=== PATIENT | female | born 1965 | race African-American/Black ===

== ENCOUNTER 2019-04-04 08:57 | Inpatient (IN) | payer MEDICAID, MEDICARE ==
[~2019-04-04] VITALS: Ht 170.2 cm; Wt 60.3 kg
[2019-04-04 14:28] LABS: MEAN CORPUSCULAR HEMOGLOBIN 19.1 pg (28.0-32.0); MEAN PLATELET VOLUME 8.2 fl (7.4-10.4); PLATELET 240 x1000/uL (130-400); RED BLOOD CELL COUNT 2.59 mill/uL (4.2-5.4); RED CELL DISTRIBUTION WIDTH 23.1 % (11.6-14.6)
[2019-04-04 14:34] LABS: HEMATOCRIT. 17.4 % (36.0-48.0)
[2019-04-04 14:35] LABS: CHLORIDE 106 mEq/L (98-107); CLARITY URINE CLEAR (CLEAR); COLOR URINE YELLOW (YELLOW); KETONES URINE TRACE (NEGATIVE); LEUKOCYTE ESTERASE URINE NEGATIVE (NEGATIVE); NITRITE URINE NEGATIVE (NEGATIVE); OCCULT BLOOD URINE 3+ (NEGATIVE); PROTEIN URINE TRACE (NEGATIVE); SPECIFIC GRAVITY URINE 1.018 (1.005-1.030)
[2019-04-04 14:39] LABS: HCG SCREEN NEGATIVE
[2019-04-04 14:47] LABS: B-HCG QUANTITATIVE < 1 mIU/mL (<3)
[2019-04-04 15:18] LABS: PLATELET ESTIMATE NORMAL
[2019-04-04 16:12] LABS: PROTHROMBIN TIME 10.4 sec (9.6-11.0)
[2019-04-04] MEDS ORDERED: IPRATROPIUM/ALBUTEROL 0.5-3(2.5)MG/3ML NEB HHN PRN (16:45)
[2019-04-04 18:15] VITALS: BP 113/63
[2019-04-04] MEDS: NICOTINE 21MG PATCH TD SCH (18:57)
[2019-04-04] MEDS: FERROUS SULFATE 325MG TABLET PO SCH (18:57)
[2019-04-04] MEDS: ACETAMINOPHEN 325MG TABLET PO PRN (19:45)
[2019-04-04 19:54] VITALS: BP 110/67
[2019-04-04 20:00] VITALS: BP 110/67
[2019-04-04] MEDS: FAMOTIDINE 20MG TABLET PO SCH (20:36)
[2019-04-04 23:34] LABS: MEAN CORPUSCULAR HEMOGLOBIN 22.5 pg (28.0-32.0); MEAN CORPUSCULAR VOLUME 71.8 fL (81.0-99.0); MEAN PLATELET VOLUME 8.1 fl (7.4-10.4); PLATELET 197 x1000/uL (130-400); RED BLOOD CELL COUNT 2.38 mill/uL (4.2-5.4); RED CELL DISTRIBUTION WIDTH 26.1 % (11.6-14.6)
[2019-04-04 23:40] LABS: HEMATOCRIT. 17.1 % (36.0-48.0); HEMOGLOBIN. 5.3 g/dL (12.0-16.0)
[2019-04-05] VITALS (19 sets, daily range): BP systolic 97–123; BP diastolic 62–81
[2019-04-05] MEDS: BUDESONIDE 0.5MG/2ML NEB HHN SCH ×3 (00:47→20:04)
[2019-04-05] MEDS: IPRATROPIUM/ALBUTEROL 0.5-3(2.5)MG/3ML NEB HHN SCH ×4 (00:47→20:04)
[2019-04-05 02:36] LABS: PLATELET ESTIMATE NORMAL
[2019-04-05 02:41] LABS: *AMPHETAMINES SCREEN URINE NEGATIVE (NEGATIVE); *BARBITURATES SCREEN URINE NEGATIVE (NEGATIVE); *BENZODIAZEPINES SCREEN URINE NEGATIVE (NEGATIVE); *COCAINE SCREEN URINE PRESUMTIVE POSITIVE (NEGATIVE); CANNABINOID URINE SCREEN NEGATIVE (NEGATIVE); METHADONE URINE SCREEN NEGATIVE (NEGATIVE); OPIATES URINE SCREEN NEGATIVE (NEGATIVE); PHENCYCLIDINE URINE SCREEN NEGATIVE (NEGATIVE)
[2019-04-05] MEDS: ACETAMINOPHEN 325MG TABLET PO PRN (04:07)
[2019-04-05 07:01] LABS: MEAN CORPUSCULAR HEMOGLOBIN 24.6 pg (28.0-32.0); MEAN PLATELET VOLUME 8.7 fl (7.4-10.4); PLATELET 179 x1000/uL (130-400); RED BLOOD CELL COUNT 2.66 mill/uL (4.2-5.4); RED CELL DISTRIBUTION WIDTH 27.1 % (11.6-14.6)
[2019-04-05 07:51] LABS: CHLORIDE 112 mEq/L (98-107)
[2019-04-05] MEDS: FERROUS SULFATE 325MG TABLET PO SCH ×3 (08:20→18:17)
[2019-04-05] MEDS: FAMOTIDINE 20MG TABLET PO SCH ×2 (08:20→21:47)
[2019-04-05] MEDS: NICOTINE 21MG PATCH TD SCH (08:20)
[2019-04-05 08:48] LABS: HEMATOCRIT. 20.2 % (36.0-48.0); HEMOGLOBIN. 6.6 g/dL (12.0-16.0)
[2019-04-05 09:03] LABS: PLATELET ESTIMATE NORMAL
[2019-04-05 09:11] LABS: MEAN CORPUSCULAR HEMOGLOBIN 24.6 pg (28.0-32.0); MEAN CORPUSCULAR VOLUME 76.4 fL (81.0-99.0); MEAN PLATELET VOLUME 8.5 fl (7.4-10.4); PLATELET 184 x1000/uL (130-400); RED BLOOD CELL COUNT 2.76 mill/uL (4.2-5.4); RED CELL DISTRIBUTION WIDTH 26.9 % (11.6-14.6)
[2019-04-05 09:18] LABS: HEMATOCRIT. 21.1 % (36.0-48.0); HEMOGLOBIN. 6.8 g/dL (12.0-16.0)
[2019-04-05] MEDS: HYDROCODONE/ACETAMINOPHEN 10/325MG TABLET PO PRN ×2 (09:53→19:06)
[2019-04-05 10:17] LABS: PLATELET ESTIMATE NORMAL
[2019-04-05] MEDS ORDERED: FERR325T6 MT (11:32)
[2019-04-05] MEDS ORDERED: DOCU-138 MT (11:32)
[2019-04-05] MEDS ORDERED: FLUT1DIS3 INH (11:32)
[2019-04-05] MEDS ORDERED: NICO-645 TP (11:32)
[2019-04-05] MEDS ORDERED: ALBU18HF2 IH (11:32)
[2019-04-05] MEDS ORDERED: MORPHINE SULFATE 2 MG/ML CPJ (NOT FOR IM USE) IV SCH (12:00)
[2019-04-05] MEDS: CHLORDIAZEPOXIDE 25MG CAPSULE PO SCH ×2 (14:09→21:47)
[2019-04-06] VITALS: BP 128/58
[2019-04-06 00:53] LABS: HEMATOCRIT 24.1 % (36.0-48.0); HEMOGLOBIN 7.9 g/dL (12.0-16.0)
[2019-04-06 04:00] VITALS: BP 122/82
[2019-04-06] MEDS: CHLORDIAZEPOXIDE 25MG CAPSULE PO SCH ×3 (06:23→21:18)
[2019-04-06] MEDS: FERROUS SULFATE 325MG TABLET PO SCH ×3 (06:23→18:03)
[2019-04-06 08:00] VITALS: BP 119/85
[2019-04-06] MEDS: FAMOTIDINE 20MG TABLET PO SCH ×2 (09:05→21:17)
[2019-04-06] MEDS: NICOTINE 21MG PATCH TD SCH (09:05)
[2019-04-06] MEDS: IPRATROPIUM/ALBUTEROL 0.5-3(2.5)MG/3ML NEB HHN SCH ×3 (09:09→21:37)
[2019-04-06] MEDS: BUDESONIDE 0.5MG/2ML NEB HHN SCH ×2 (09:09→21:37)
[2019-04-06] MEDS: ACETAMINOPHEN 325MG TABLET PO PRN (09:12)
[2019-04-06] MEDS: ONDANSETRON HCL 4MG/2ML INJ IV PRN (09:12)
[2019-04-06 12:15] VITALS: BP 109/76
[2019-04-06 16:00] VITALS: BP 119/81
[2019-04-06 20:00] VITALS: BP 100/64
[2019-04-06] MEDS: HYDROCODONE/ACETAMINOPHEN 10/325MG TABLET PO PRN (21:18)
[2019-04-07] VITALS (8 sets, daily range): BP systolic 85–110; BP diastolic 48–75
[2019-04-07] MEDS: IPRATROPIUM/ALBUTEROL 0.5-3(2.5)MG/3ML NEB HHN SCH ×5 (02:36→21:31)
[2019-04-07] MEDS: FERROUS SULFATE 325MG TABLET PO SCH ×3 (06:27→17:20)
[2019-04-07] MEDS: CHLORDIAZEPOXIDE 25MG CAPSULE PO SCH ×3 (06:27→21:04)
[2019-04-07] MEDS: ACETAMINOPHEN 325MG TABLET PO PRN ×2 (06:28→21:04)
[2019-04-07] MEDS: BUDESONIDE 0.5MG/2ML NEB HHN SCH ×2 (07:47→21:31)
[2019-04-07] MEDS: NICOTINE 21MG PATCH TD SCH (08:34)
[2019-04-07] MEDS: FAMOTIDINE 20MG TABLET PO SCH ×2 (08:34→21:04)
[2019-04-07] MEDS: HYDROCODONE/ACETAMINOPHEN 10/325MG TABLET PO PRN ×2 (10:19→23:22)
[2019-04-07 16:34] LABS: HEMOGLOBIN 6.1 g/dL (12.0-16.0)
[2019-04-07] MEDS: ONDANSETRON HCL 4MG/2ML INJ IV PRN (17:20)
[2019-04-07] MEDS ORDERED: CEFTRIAXONE 1 G PREMIX 50 ML IV SCH (20:30)
[2019-04-07] MEDS: CEFTRIAXONE 1,000 MG in DEXTROSE 5% WATER 50 ML IV SCH (22:12)
[2019-04-08] VITALS (8 sets, daily range): BP systolic 97–108; BP diastolic 58–75
[2019-04-08] MEDS: IPRATROPIUM/ALBUTEROL 0.5-3(2.5)MG/3ML NEB HHN SCH ×4 (02:39→22:09)
[2019-04-08] MEDS: CHLORDIAZEPOXIDE 25MG CAPSULE PO SCH ×3 (07:28→22:56)
[2019-04-08 08:19] LABS: BASOPHILS % 0.7 % (0.0-2.0); EOSINOPHILS % 2.9 % (0.0-5.0); LYMPHOCYTES % 37.1 % (20.0-50.0); MEAN CORPUSCULAR HEMOGLOBIN 27.4 pg (28.0-32.0); MEAN CORPUSCULAR VOLUME 84.6 fL (81.0-99.0); MONOCYTES % 13.4 % (2.0-8.0); NEUTROPHILS % 45.9 % (40.0-76.0); PLATELET 161 x1000/uL (130-400); RED BLOOD CELL COUNT 2.74 mill/uL (4.2-5.4); RED CELL DISTRIBUTION WIDTH 26.2 % (11.6-14.6)
[2019-04-08 08:25] LABS: HEMOGLOBIN. 7.6 g/dL (12.0-16.0)
[2019-04-08 08:26] LABS: HEMATOCRIT. 22.9 % (36.0-48.0)
[2019-04-08] MEDS: FAMOTIDINE 20MG TABLET PO SCH ×2 (08:55→21:16)
[2019-04-08] MEDS: FERROUS SULFATE 325MG TABLET PO SCH ×3 (08:55→21:16)
[2019-04-08] MEDS: NICOTINE 21MG PATCH TD SCH (08:56)
[2019-04-08] MEDS: BUDESONIDE 0.5MG/2ML NEB HHN SCH ×2 (08:57→22:09)
[2019-04-08] MEDS: HYDROCODONE/ACETAMINOPHEN 10/325MG TABLET PO PRN ×2 (10:57→21:21)
[2019-04-08] MEDS ORDERED: CEFAZOLIN 2,000 MG in DEXT 5% WATER 100 ML IV SCH (13:15)
[2019-04-08] MEDS ORDERED: BUPIVACAINE HCL/EPINEPHRINE 0.5%/0.0005 30ML ONE (15:24)
[2019-04-08] MEDS ORDERED: PROPOFOL 200MG/20ML VIAL IV ONE (16:36)
[2019-04-08] MEDS ORDERED: MIDAZOLAM HCL 2 MG/2 ML VIAL ONE (16:37)
[2019-04-08] MEDS ORDERED: LIDOCAINE HCL/PF 1% 10 MG/ML 5ML VIAL ONE (16:37)
[2019-04-08] MEDS ORDERED: FENTANYL CITRATE/PF 50MCG/ML 2ML VIAL ONE (16:37)
[2019-04-08] MEDS ORDERED: PHENYLEPHRINE HCL 10 MG/ML 1ML (IV VIAL) IV ONE (17:13)
[2019-04-08] MEDS ORDERED: KETAMINE HCL 50 MG/ML 10ML ONE (17:24)
[2019-04-08] MEDS ORDERED: ONDANSETRON HCL 4MG/2ML INJ IV PRN (17:30)
[2019-04-08] MEDS ORDERED: FENTANYL CITRATE/PF 50MCG/ML 2ML VIAL IV PRN (17:30)
[2019-04-08] MEDS ORDERED: HYDROMORPHONE HCL/PF 2MG/ML CPJ IV PRN (17:30)
[2019-04-08] MEDS ORDERED: SODIUM CHLORIDE 0.9% 10ML VIAL ONE (17:38)
[2019-04-08] MEDS ORDERED: ONDANSETRON HCL 4MG/2ML INJ ONE (17:58)
[2019-04-08] MEDS ORDERED: KETOROLAC 30MG/ML VIAL IM NR (18:18)
[2019-04-08] MEDS: CEFTRIAXONE 1,000 MG in DEXTROSE 5% WATER 50 ML IV SCH (22:57)
[2019-04-09] VITALS: BP_SYST 104; BP_SYST 99; BP_DIAS 65; BP_DIAS 72
[2019-04-09] MEDS: IPRATROPIUM/ALBUTEROL 0.5-3(2.5)MG/3ML NEB HHN SCH ×4 (02:15→21:42)
[2019-04-09 04:00] VITALS: BP 129/74
[2019-04-09] MEDS: CHLORDIAZEPOXIDE 25MG CAPSULE PO SCH ×3 (06:54→21:50)
[2019-04-09] MEDS: HYDROCODONE/ACETAMINOPHEN 10/325MG TABLET PO PRN ×2 (06:56→15:25)
[2019-04-09 07:53] LABS: BASOPHILS % 0.4 % (0.0-2.0); EOSINOPHILS % 3.4 % (0.0-5.0); HEMATOCRIT. 22.1 % (36.0-48.0); HEMOGLOBIN. 7.2 g/dL (12.0-16.0); LYMPHOCYTES % 27.3 % (20.0-50.0); MEAN CORPUSCULAR HEMOGLOBIN 29.1 pg (28.0-32.0); MEAN CORPUSCULAR VOLUME 88.8 fL (81.0-99.0); MEAN PLATELET VOLUME 7.8 fl (7.4-10.4); MONOCYTES % 9.8 % (2.0-8.0); NEUTROPHILS % 59.1 % (40.0-76.0); PLATELET 154 x1000/uL (130-400); RED BLOOD CELL COUNT 2.49 mill/uL (4.2-5.4); RED CELL DISTRIBUTION WIDTH 27.7 % (11.6-14.6)
[2019-04-09 07:58] LABS: CHLORIDE 112 mEq/L (98-107)
[2019-04-09 08:00] VITALS: BP 105/66
[2019-04-09] MEDS: BUDESONIDE 0.5MG/2ML NEB HHN SCH ×2 (08:29→21:42)
[2019-04-09] MEDS: FERROUS SULFATE 325MG TABLET PO SCH ×3 (08:59→16:58)
[2019-04-09] MEDS: NICOTINE 21MG PATCH TD SCH (08:59)
[2019-04-09] MEDS: FAMOTIDINE 20MG TABLET PO SCH ×2 (10:14→21:50)
[2019-04-09 12:00] VITALS: BP_SYST 105; BP_SYST 96; BP_DIAS 61; BP_DIAS 66
[2019-04-09] MEDS: SODIUM CHLORIDE 0.9% 1,000 ML IV SCH ×2 (14:41→22:01)
[2019-04-09 15:15] VITALS: BP_SYST 104; BP_SYST 105; BP_DIAS 65
[2019-04-09] MEDS ORDERED: SORBITOL 70% SOLN 30ML PO NR (16:45)
[2019-04-09] MEDS: ACETAMINOPHEN 325MG TABLET PO PRN (19:09)
[2019-04-09 20:00] VITALS: BP 96/63
[2019-04-09] MEDS ORDERED: NA PHOS,M-B/NA PHOS,DI-BA ENEMA 118ML PR NR (21:00)
[2019-04-09] MEDS: CEFTRIAXONE 1 G PREMIX 50 ML IV SCH (22:01)
[2019-04-10] VITALS (11 sets, daily range): BP systolic 99–125; BP diastolic 65–84
[2019-04-10] MEDS: IPRATROPIUM/ALBUTEROL 0.5-3(2.5)MG/3ML NEB HHN SCH ×4 (01:01→21:37)
[2019-04-10] MEDS: CHLORDIAZEPOXIDE 25MG CAPSULE PO SCH ×3 (05:38→22:00)
[2019-04-10 08:05] LABS: CHLORIDE 113 mEq/L (98-107)
[2019-04-10 08:19] LABS: EOSINOPHILS % 3.2 % (0.0-5.0); LYMPHOCYTES % 26.4 % (20.0-50.0); MEAN CORPUSCULAR HEMOGLOBIN 31.6 pg (28.0-32.0); MEAN CORPUSCULAR VOLUME 87.8 fL (81.0-99.0); MEAN PLATELET VOLUME 8.3 fl (7.4-10.4); MONOCYTES % 8.7 % (2.0-8.0); NEUTROPHILS % 60.7 % (40.0-76.0); PLATELET 167 x1000/uL (130-400); RED BLOOD CELL COUNT 2.16 mill/uL (4.2-5.4); RED CELL DISTRIBUTION WIDTH 36.3 % (11.6-14.6)
[2019-04-10 08:42] LABS: HEMOGLOBIN. 6.8 g/dL (12.0-16.0)
[2019-04-10] MEDS: FAMOTIDINE 20MG TABLET PO SCH ×2 (09:05→21:13)
[2019-04-10] MEDS: HYDROCODONE/ACETAMINOPHEN 10/325MG TABLET PO PRN ×2 (09:06→21:49)
[2019-04-10] MEDS: NICOTINE 21MG PATCH TD SCH (09:06)
[2019-04-10] MEDS: FERROUS SULFATE 325MG TABLET PO SCH ×3 (09:06→17:59)
[2019-04-10] MEDS ORDERED: SORBITOL 70% SOLN 30ML PO NR (11:24)
[2019-04-10] MEDS: SODIUM CHLORIDE 0.9% 1,000 ML IV SCH (13:42)
[2019-04-10] MEDS: DOCUSATE SODIUM 250MG CAPSULE PO SCH (13:45)
[2019-04-10 21:07] LABS: HEMOGLOBIN 8.6 g/dL (12.0-16.0)
[2019-04-10] MEDS: CEFTRIAXONE 1 G PREMIX 50 ML IV SCH (21:13)
[2019-04-10 21:16] LABS: HEMATOCRIT 19.8 % (36.0-48.0)
[2019-04-10] MEDS: BUDESONIDE 0.5MG/2ML NEB HHN SCH (21:32)
[2019-04-10] MEDS: ONDANSETRON HCL 4MG/2ML INJ IV PRN (22:10)
[2019-04-11] VITALS: BP 133/81
[2019-04-11] MEDS: SODIUM CHLORIDE 0.9% 1,000 ML IV SCH ×2 (01:15→09:53)
[2019-04-11 04:00] VITALS: BP 143/87
[2019-04-11] MEDS: CHLORDIAZEPOXIDE 25MG CAPSULE PO SCH ×2 (05:14→13:40)
[2019-04-11] MEDS: FERROUS SULFATE 325MG TABLET PO SCH ×3 (07:15→17:15)
[2019-04-11 08:00] VITALS: BP 129/87
[2019-04-11 08:19] LABS: CHLORIDE 111 mEq/L (98-107)
[2019-04-11] MEDS: BUDESONIDE 0.5MG/2ML NEB HHN SCH (08:48)
[2019-04-11] MEDS: IPRATROPIUM/ALBUTEROL 0.5-3(2.5)MG/3ML NEB HHN SCH ×2 (08:48)
[2019-04-11] MEDS: FAMOTIDINE 20MG TABLET PO SCH (09:00)
[2019-04-11] MEDS: DOCUSATE SODIUM 250MG CAPSULE PO SCH (09:00)
[2019-04-11] MEDS: NICOTINE 21MG PATCH TD SCH (09:00)
[2019-04-11 09:46] LABS: HEMATOCRIT. 23.1 % (36.0-48.0); HEMOGLOBIN. 7.7 g/dL (12.0-16.0); MEAN CORPUSCULAR HEMOGLOBIN 30.4 pg (28.0-32.0); MEAN CORPUSCULAR VOLUME 90.5 fL (81.0-99.0); MEAN PLATELET VOLUME 8.3 fl (7.4-10.4); PLATELET 200 x1000/uL (130-400); RED BLOOD CELL COUNT 2.55 mill/uL (4.2-5.4); RED CELL DISTRIBUTION WIDTH 37.1 % (11.6-14.6)
[2019-04-11] MEDS ORDERED: SORBITOL 70% SOLN 30ML PO SCH (11:30)
[2019-04-11 12:00] VITALS: BP 108/60
[2019-04-11] MEDS ORDERED: SORBITOL 70% SOLN 30ML PO NR (13:30)
[2019-04-11 16:00] VITALS: BP 135/86
[2019-04-11 16:31] LABS: PLATELET ESTIMATE NORMAL
[2019-04-11 19:03] VITALS: BP 135/86
== END 2019-04-11 20:10 | disposition home or self-care (01) | DRG 517 ==
LOC: ER 08:57 → 5WST 15:43 → ENRESERV 16:54
PROVIDERS: ADMIT Internal Medicine; ATTEND Internal Medicine
PROC: 0UDB7ZZ Extraction of Endometrium, Via Natural or Artificial Opening (ICD-10-PCS; principal; 2019-04-08)
PROC: 30233N1 Transfusion of Nonautologous Red Blood Cells into Peripheral Vein, Percutaneous Approach (ICD-10-PCS; 2019-04-08)
DX: D25.9 Leiomyoma of uterus, unspecified (principal); E44.0 Moderate protein-calorie malnutrition; D50.0 Iron deficiency anemia secondary to blood loss (chronic); F10.10 Alcohol abuse, uncomplicated; F17.210 Nicotine dependence, cigarettes, uncomplicated; F14.10 Cocaine abuse, uncomplicated; I10 Essential (primary) hypertension; N92.0 Excessive and frequent menstruation with regular cycle; R19.7 Diarrhea, unspecified; Z71.6 Tobacco abuse counseling; Z71.41 Alcohol abuse counseling and surveillance of alcoholic; N92.1 Excessive and frequent menstruation with irregular cycle; Z68.20 Body mass index [BMI] 20.0-20.9, adult
CPT/HCPCS: 36415; 71045; 72148; 76856; 80048; 80305; 81003; 83880; 84484; 84702; 84703; 85014; 85018; 85049; 85384; 86850; 86900; 86920; 87015; 87045; 87427; 87449; 87493; 88305; 93005; 93970; 94640; 96374; 97162; 99285; J0171; J0690; J0696; J1885; J2250; J2270; J2370; J2405; J2704; J3010; J3490; J7030; J7040; J7060; J7620; J7626; P9016; P9021

== ENCOUNTER 2024-06-05 15:33 | Emergency (ER) | payer MEDICARE ==
[~2024-06-05] VITALS: Ht 167.6 cm; Wt 50.0 kg
[~2024-06-05 15:33] MED LIST: ALBU18HF2 IH; AMOX1TAB16 MT; DOCU-138 MT; FERR325T6 MT; FLUT1DIS3 INH; NICO-645 TP; SULF1TAB48 MT
[2024-06-05 15:44] VITALS: BP 160/72; PULSE 109; RESP 18; TEMP 98.9; O2SAT 99
== END 2024-06-05 19:45 | disposition left against medical advice (07) ==
LOC: ER 15:33
DX: M25.512 Pain in left shoulder (principal); I10 Essential (primary) hypertension; Z79.899 Other long term (current) drug therapy; Z98.890 Other specified postprocedural states
CPT/HCPCS: 99283